=== PATIENT | female | born 1955 | race Caucasian/White ===

== ENCOUNTER 2024-06-02 07:03 | Emergency (ER) | payer MEDICARE, MEDICAID, SELFPAY ==
[2024-06-02 07:04] VITALS: BMI 20.3
[2024-06-02 07:12] VITALS: BP 146/81; PULSE 126; RESP 18; TEMP 37.4; O2SAT 95; BMI 26.5
--- NOTE | 2024-06-02 07:22 | XR_ITS ---
Examination: PA lateral chest 2 views Technique: Upright PA lateral chest 2 views Exam date and time: 0800 hrs. Indications: Coughing fever beginning 3 days ago. Findings: Cuwt-io-asryuhvy right base pneumonia Normal heart size Prominent osteopenia Impression: Mild to moderate right base pneumonia
--- NOTE | 2024-06-02 07:22 | PD.EDRME ---
Rapid Medical Screening Exam RME Arrival date/time: 06/02/24 07:03 69-year-old female presents to the emergency department today for complaints of fever ongoing for the last 3 to 4 days patient reports does not feel well and she feels dizzy and weak Chief Complaint: Flu Like Symptoms Vital signs: Vital Signs Temperature 99.3 F 06/02/24 07:12 Pulse Rate 126 H 06/02/24 07:12 Respiratory Rate 18 06/02/24 07:12 Blood Pressure 146/81 H 06/02/24 07:12 Pulse Oximetry (%) 95 06/02/24 07:12 Oxygen Delivery Method Room Air 06/02/24 07:12
[2024-06-02] MEDS: ACETAMINOPHEN 500 MG TABLET 1000 MG PO (07:43)
[2024-06-02 08:11] LABS: Lactate (Lactic Acid) 1.6 mMol/L (0.4-2.0)
[2024-06-02 08:16] LABS: Basophils % (Auto) 0 % (0-2.5); Eosinophils % (Auto) 0 % (0-10); Hematocrit 42.7 % (36.0-46.0); Hemoglobin 14.1 g/dL (12.0-16.0); Immature Granulocytes % (Auto) 0 % (0-0); Immature Granulocytes Auto 0.03 Thou/mm3 (0.00-0.00); Lymphocytes # (Auto) 0.8 Thou/mm3 (1.0-4.8); Lymphocytes % (Auto) 9 % (10-50); Mean Corpuscular Hemoglobin 26.4 pg (25.0-35.0); Mean Corpuscular Volume 80 fL (80-100); Monocytes # (Auto) 0.4 Thou/mm3 (0.0-0.8); Monocytes % (Auto) 5 % (0-12); Neutrophils # (Auto) 7.9 Thou/mm3 (1.8-7.7); Neutrophils % (Auto) 85 % (37-80); Nucleated Red Blood Cell % 0 /100 WBC (0); Platelet Count 269 Thou/mm3 (140-440); RDW Standard Deviation 38.4 fL (36.4-46.3); Red Blood Count 5.35 Miln/mm3 (4.00-5.20); White Blood Count 9.3 Thou/mm3 (3.6-11.0)
[2024-06-02 08:42] LABS: Alanine Aminotransferase 20 U/L (10-49); Albumin, Serum 4.7 gm/dL (3.4-4.8); Albumin/Globulin Ratio 1.4 (1.2-2.2); Alkaline Phosphatase 83 U/L (46-116); Anion Gap 5 (7-16); Aspartate Amino Transferase 27 U/L (0-34); BUN/Creatinine Ratio 10 Ratio (12-20); Bilirubin,Total 0.6 mg/dL (0.3-1.2); Blood Urea Nitrogen 10 mg/dL (9-23); Calcium 9.6 mg/dL (8.3-10.6); Calcium (Corrected) 9.6 mg/dL (8.5-10.1); Carbon Dioxide 30.6 mMol/L (20.0-31.0); Chloride 98 mMol/L (98-107); Estimated Creatinine Clearance 48.5 mL/min (>60); Globulin 3.3 gm/dL (2.3-3.5); Glucose 117 mg/dL (74-106); Osmolality,Calculated 268 (275-295); Potassium 3.6 mMol/L (3.4-5.1); Procalcitonin 0.17 ng/ml (0.0-0.49); Sodium 134 mMol/L (136-145); Troponin I < 0.002 ng/mL (0.0-0.045); eGFR > 60 See Note
[2024-06-02 10:01] LABS: Collection Type, Urine Clean Catch
[2024-06-02 10:14] LABS: Bilirubin,Urine Negative (Negative); Blood,Urine 3+ (Negative); Budding Yeast,Urine Present; Clarity,Urine Clear (Clear/Hazy); Color,Urine Yellow (Lt Yel-Yel); Glucose, Urine Negative (Negative); Hyaline Casts,Urine < 1 /hpf (0-1); Ketones,Urine Negative (Negative); Leukocyte Esterase,Urine Negative (Negative); Nitrite,Urine Negative (Negative); PH,Urine 7.5 (5.0-7.0); Protein,Urine Trace (Neg - Trace); RBC,Urine 215 /hpf (0-3); Squamous Epithelial Cell,Urine 1 /hpf (0-5); Urobilinogen,Urine Negative mg/dL (0.0-1.0); WBC,Urine 2 /hpf (0-5)
[2024-06-02 10:37] VITALS: BP 118/74; PULSE 106; RESP 18; TEMP 37.1; O2SAT 96
--- NOTE | 2024-06-02 13:10 | EDNOTE_ITS ---
<Statement entered by Irena Negrete MD - 06/03/24 14:29> As co-signing physician, I was present and available for consult prn. I concur with the plan and care as documented by the midlevel provider. Upper Respiratory Inf. RME/HPI General Chief Complaint: Flu Like Symptoms Stated Complaint: DON'T FEEL GOOD Time Seen by Provider: 06/02/24 12:52 Arrival date/time: 06/02/24 07:03 RME / HPI RME / HPI Narrative: 69-year-old female patient with significant history of hypertension, came in for evaluation regarding worsening cough. Patient is having worsening cough for the last 3 to 4 days, and this morning patient does not feel good, and having chills. Patient denies any shortness of breath denies any other complaints or medications taken prior travel. Related Data Home Medications ?Medication ?Instructions ?Recorded ?Confirmed gabapentin 300 mg capsule 300 mg PO TID ##0 12/22/09 1 02/23/22 atorvastatin 40 mg tablet 40 mg PO QPM 12/24/22 hydrochlorothiazide 12.5 mg capsule 12.5 mg PO DAILY 1 02/23/22 12/24/22 levetiracetam 500 mg tablet 1,000 mg PO BID 12/24/22 1 02/23/22 Previous Rx's ?Medication ?Instructions ?Recorded apixaban 2.5 mg tablet (Eliquis) 2.5 mg PO BID 30 days #60 tabs 12/30/22 amoxicillin 875 mg-potassium 1 tab PO BID #14 tabs clavulanate 125 mg tablet doxycycline monohydrate 100 mg 100 mg PO BID #14 caps 06/02/24 capsule Allergies Allergy/AdvReac Type Severity Reaction Status Date / Time Sulfa (Sulfonamide Allergy Severe HIVES, Verified 06/02/24 07:06 Antibiotics) DIFF BREATHING Review of Systems Review of Systems Narrative Review of Systems: Review of system reviewed and within normal limits except mentioned in HPI ED Exam Narrative Physical exam: VITAL SIGNS: Reviewed. GENERAL APPEARANCE: Alert and interactive, follows commands, no acute distress, HEAD AND FACE: Non-traumatic. ENT: PERRL, pink conjunctivitis, eyelid no trauma, Mucous membrane moist. NECK: Supple, nontender, no nuchal rigidity. CHEST: No tenderness, no crepitus, no paradoxical movement, no retractions. LUNGS: Clear, well ventilated, symmetric, no rales, no wheezing, no ronchi, no stridor, good breath sounds bilaterally. HEART: Regular rate, regular rhythm, no murmur, no gallops. ABDOMEN: Soft, positive bowel sounds, nondistended, no guarding, nontender, no rebound, no masses, RECTAL: Deferred. GENITAL: Deferred. NEUROLOGICAL: Gross motor function intact sensory function intact, Appropriate for age. MUSCULOSKELETAL: low back nontender, full range of motion. EXTREMITIES: Nontender, full range of motion. SKIN: Color pink, dry, no rash, no lacerations, no abrasions, no contusions. LYMPHATICS: Deferred. Course Quality Measures none Orders Category Date Time Status Bedside COVID-19 Antigen Test NOW Care 06/02/24 07:22 Active Bedside Influenza A&B Antigen Test NOW Care 06/02/24 07:22 Completed XR chest 2V Stat Exams 06/02/24 07:22 Completed Blood Culture (Lab) Stat Lab 06/02/24 07:45 Received CBC Stat Lab 06/02/24 08:00 Completed Comprehensive Metabolic Panel Stat Lab 06/02/24 08:00 Completed Lactate (Lactic Acid) Stat Lab 06/02/24 08:00 Completed Procalcitonin Stat Lab 06/02/24 08:00 Completed Troponin I Stat Lab 06/02/24 08:00 Completed Urinalysis Stat Lab 06/02/24 09:58 Completed Urine Culture Stat Lab 06/02/24 09:58 Received Acetaminophen Tab [Tylenol ES Tab] Med 06/02/24 07:22 Discontinued 1,000 mg PO X1 ONE Vital Signs Vital signs: Vital Signs Temperature 99.3 F 06/02/24 07:12 Pulse Rate 126 H 06/02/24 07:12 Respiratory Rate 18 06/02/24 07:12 Blood Pressure 146/81 H 06/02/24 07:12 Pulse Oximetry (%) 95 06/02/24 07:12 Oxygen Delivery Method Room Air 06/02/24 07:12 Upper Respiratory Infection MDM Narrative MDM Narrative:: 69-year-old female patient with significant history of hypertension, came in for evaluation regarding worsening cough. Patient is having worsening cough for the last 3 to 4 days, and this morning patient does not feel good, and having chills. Patient denies any shortness of breath denies any other complaints or medications taken prior travel. Laboratory workup came back with no leukocytosis. Chest x-ray showed right pneumonia. Patient was prescribed doxycycline and Augmentin. Patient was noted to be satting 96% on room air. Patient appears nontoxic and hemodynamically stable. Patient discharged home and instructed to follow-up with primary care provider in 24 to 48 hours. Instructed to return to the emergency department immediately if worsening of symptoms Patient data External records reviewed:: None Clinical information provided by:: patient and family Social determinants that could affect healthcare access:: none Patient has the following chronic illnesses:: Hypertension How is presenting disease/condition affected by chronic disease/condition?: uneffected by Evaluation data The following diagnostics were reviewed and interpreted by me:: lab results and EKG tracing(s) Lab and/or radiology exams considered but not ordered:: None Interpretation Summary: See results in MDM Medications / Prescriptions Medications or Prescriptions considered but not ordered:: None Medication administrations:: Medication Administration History Discontinued Medications Acetaminophen (Acetaminophen 500 Mg Tablet) 1,000 mg PO X1 ONE Stop: 06/02/24 07:23 Last Admin: 06/02/24 07:43 Dose: 1,000 mg Documented By: JADA Tylenol Consultations Consultation(s) initiated? (list below): No Diagnosis Upper Respiratory Differential Diagnosis: upper respiratory infection and viral infection Most likely diagnosis given after review of the tests above:: Pneumonia Admission Indicated Admission indicated?: indicated Explain why admission is indicated or not indicated:: Stable Admission Request Was there a request for admission?: No Disposition Plan Disposition Plan: Discharge Discharge Attestation Discharge Attestation: The patient and all family members were given an opportunity to ask questions and understood the discharge instructions. Discharge instructions specifically effects, indications for sooner follow up or return to the emergency department, and the expected course of current diagnosis. Patient condition: Stable Discharge Plan Plan Patient Disposition: HOME (Self Care) Disposition Comment: stable Prescriptions/Referrals Prescriptions/Med Rec: New doxycycline monohydrate 100 mg capsule 100 mg PO BID Qty: 14 0RF amoxicillin-pot clavulanate 875-125 mg tablet 1 tab PO BID Qty: 14 0RF No Action gabapentin 300 MG capsule 300 mg PO TID Qty: 0 atorvastatin 40 mg Tablet 40 mg PO QPM levetiracetam 500 mg tablet 1,000 mg PO BID Patient Comments: TAKE TWO TABLETS BY MOUTH TWICE DAILY FOR SEIZURES hydrochlorothiazide 12.5 mg capsule 12.5 mg PO DAILY Patient Comments: TAKE ONE CAPSULE BY MOUTH EVERY DAY FOR BLOOD PRESSURE Eliquis 2.5 mg Tablet 2.5 mg PO BID 30 Days Qty: 60 1RF Referrals: Fela Hays PA-C [Primary Care Provider] - In 1 week Problem List Clinical Impression: Pneumonia Patient/Caregiver Discharge Instructions Discharge Activity: activity as tolerated Education Materials: Treating Pneumonia Additional Instructions: Thank you for the opportunity for serving you today. You are stable for vinnie allred . You are advised to: Follow-up with your PCP in 1 to 2 days Return to ED for worsening of symptoms Increase oral fluids Take medication as prescribed Print Language: Italian Stand Alone Forms: Simona Award Info., Patient Portal Info Letter ALEEAN/JONATHAN Supervising Physician ALEENA/JONATHAN Supervising Physician: MD Penelope
== END 2024-06-02 13:16 | disposition home or self-care (01) ==
PROVIDERS: Nurse Practitioner Primary Care; Emergency Provider Emergency Medicine; PCP Physician Assistant
DX: J18.9 Pneumonia, unspecified organism (principal); I10 Essential (primary) hypertension
CPT/HCPCS: 36415; 71046; 80053; 81001; 83605; 84145; 84484; 85025; 87040; 87086; 87400; 87811; 99283; A9270

== ENCOUNTER → 2025-01-22 | Outpatient (CLI) | payer MEDICARE, MEDICAID, SELFPAY ==
--- NOTE | 2025-01-22 08:34 | XR_ITS ---
Examination: Lumbar spine, 5 views Technique: Lumbar spine AP, lateral, coned lateral lower lumbar spine, bilateral obliques 5 views Exam date and time: January 22, 2025, 0855 hours INDICATIONS: Patient fell 1 week ago with injury to lower back, lower back pain. FINDINGS: Severe osteopenia Moderate diffuse facet arthropathy Grade 1 anterolisthesis L5 on S1 with advanced degenerative disc disease at this level Depression inferior endplate L1 which may be acute IMPRESSION: Recommend CT scan lumbar spine without contrast follow-up to exclude acute fracture L1 vertebral body
== END | disposition home or self-care (01) ==
PROVIDERS: PCP Physician Assistant; Referring Provider Nurse Practitioner Family; Visit Provider Nurse Practitioner Family
DX: S39.92XA Unspecified injury of lower back, initial encounter (principal); W19.XXXA Unspecified fall, initial encounter
CPT/HCPCS: 72110